=== PATIENT | female | born 1945 | race Caucasian/White ===

== ENCOUNTER → 2016-03-27 | Outpatient (CLI) | payer OTHER, MEDICARE ==
[~2016-03-27] MED LIST: BUPIVACAINE 0.25% 30 ML SDV ONE; DEPO METHYLPREDNISOLONE 40 MG/ML SDV ONE; LIDOCAINE 1% 30 ML SDV ONE; NA BICARBONATE 50 MEQ/50 ML VIAL ONE
--- NOTE | 2016-03-27 10:16 | CT ---
CT-Guided Injection of the Right Hip History: Patient has undergone prior right hip arthroplasty. Prior diagnostic CT examination January 29, 2016, demonstrates a fixation screw of the acetabular component which transgresses the cortex of the posterior right ilium. Diagnostic and potentially therapeutic injection is requested by Dr. Layo mejia to determine whether this represents a source of clinical symptomatology. Technique: Informed consent was obtained after explaining the risks of the procedure including bleedi ng and infection. A timeout was performed. The patient was placed in the left lateral decubitus position on the CT table. A localizing series wa s obtained. Subsequently, using standard sterile technique, lidocaine local anesthesia, and CT guidan ce, I advanced a 22-gauge spinal needle such that the tip of the needle was placed directly posterior and adjacent to the acetabular screw as it passes through the cortex of the ilium. At this location, 4 mL of 0.25% Marcaine and 40 mg Depo-Medrol were injected without complication. The needle was raz louie and hemostasis was achieved with manual compression. Impression: Successful CT-guided injection of the soft tissues adjacent to a right iliac fixation sc rew. Patient was given aftercare instructions, and asked to report back to Dr. Cabrera whether this injecti on provided symptomatic benefit.
== END ==
LOC: FIMAGING 07:48
PROVIDERS: ATTEND Orthopaedic Surgery
PROC: 3E0U33Z Introduction of Anti-inflammatory into Joints, Percutaneous Approach (ICD-10-PCS; principal; 2016-03-27)
DX: M25.551 Pain in right hip (principal); Z98.890 Other specified postprocedural states
CPT/HCPCS: 20610; 77012; J1020

== ENCOUNTER 2016-07-31 18:10 | Emergency (ER) | payer OTHER, MEDICARE ==
--- NOTE | 2016-07-31 18:19 | EDPHY ---
HPI/HX/ROS/PE/MDM Narrative: CHIEF COMPLAINT: Chest pain HPI: This patient is a 70 year old female who presents to the Emergency Department complaining of episodic chest pain beginning acutely yesterday afternoon. She describes her pain as a persistent dull ache localized to her left anterior chest and radiating to her shoulder. Today's episode first presented at 1500 today and has remained constant over time. She has not identified any alleviating or exacerbating factors for her pain; it is not worsened with exertion. She denies any additional complaints; no diaphoresis, nausea or vomiting, fever or chills, or lightheadedness. She does note bilateral pedal edema at night only over the past two weeks. She has a history of hypertension and hyperlipidemia. She had a stress test 5-6 years ago which was normal. REVIEW OF SYSTEMS: Aside from elements discussed in the HPI, a comprehensive 10-point review of systems was reviewed and is negative. PMH: Hyperlipidemia, hypertension, depression, hip replacement. SOCIAL HISTORY: at bedside. Retired. PHYSICAL EXAM: General:Patient is alert, appears anxious, is in no acute distress. ENT:Eyes are normal to inspection. ENT inspection normal. Neck: Normal inspection. Full range of motion. Respiratory:No respiratory distress. Breath sounds normal bilaterally. Cardiovascular: Regular rate and rhythm. Strong peripheral pulses. Normal cap refill. Abdomen:The abdomen is nontender to palpation. There are no peritoneal signs. There are normal bowel sounds. Back: Normal to inspection. No tenderness to palpation. Skin: Normal color. No rash. Warm and dry. Extremities: Normal appearance. Full range of motion. Neuro: Oriented x3. Normal motor function. Normal sensory function. ED Course: 70-year-old female with history of hyperlipidemia and hypertension presents with complaint of episodic chest pain localized to her left anterior chest with radiation to her shoulder. Her pain is not exertional or pleuritic in nature. No associated diaphoresis, nausea or vomiting, lightheadedness or weakness. She is alert and anxious appearing on exam. She is hypertensive at 177/104 at time of arrival. No abnormal exam findings. Plan for EKG, chest x-ray, and labs. IV established. 0.5mg IV lorazepam administered for anxiety. EKG was ordered and interpreted by myself and is non-ischemic. Please see [facility] for official reading. Labs reviewed and are largely within normal limits. Troponin is negative. Chest x-ray reviewed and is negative. I discussed lab, EKG, and imaging results with the patient. She is relieved. I offered her admission for further cardiac monitoring, which she declines. I discussed with her my recommendation that she follow-up as soon as possible with cardiology for further evaluation; she expresses agreement to this. She will be discharged home in good condition with strict return precautions. She understands I am unable to fully rule out a cardiac etiology of her chest pain here in the ED without further testing/admission. - Data Points Imaging Results: Imaging Impressions Chest X-Ray 07/31/16 18:31 Impression: Suspect airways disease with no superimposed acute abnormality identified. Imaging: I viewed and interpreted images myself (negative) Laboratory Results: Laboratory Results 07/31/16 18:19 07/31/16 18:19 07/31/16 07/31/16 18:19 18:19 WBC 6.78 10^3/uL 10^3/uL (3.80-9.50) RBC 4.27 10^6/uL 10^6/uL (4.18-5.33) Hgb 13.8 g/dL g/dL (12.6-16.3) Hct 40.4 % % (38.0-47.0) MCV 94.6 fL fL (81.5-99.8) MCH 32.3 pg pg (27.9-34.1) MCHC 34.2 g/dL g/dL (32.4-36.7) RDW 13.1 % % (11.5-15.2) Plt Count 307 10^3/uL 10^3/uL (150-400) MPV 9.9 fL fL (8.7-11.7) Neut % (Auto) 61.7 % % (39.3-74.2) Lymph % (Auto) 22.7 % % (15.0-45.0) [place] % (Auto) 13.1 % H % (4.5-13.0) Eos % (Auto) 1.5 % % (0.6-7.6) Baso % (Auto) 0.7 % % (0.3-1.7) Nucleat RBC Rel Count 0.0 % % (0.0-0.2) Absolute Neuts (auto) 4.18 10^3/uL 10^3/uL (1.70-6.50) Absolute Lymphs (auto) 1.54 10^3/uL 10^3/uL (1.00-3.00) Absolute Monos (auto) 0.89 10^3/uL H 10^3/uL (0.30-0.80) Absolute Eos (auto) 0.10 10^3/uL 10^3/uL (0.03-0.40) Absolute Basos (auto) 0.05 10^3/uL 10^3/uL (0.02-0.10) Absolute Nucleated RBC 0.00 10^3/uL 10^3/uL (0-0.01) Immature Gran % 0.3 % % (0.0-1.1) Immature Gran # 0.02 10^3/uL 10^3/uL (0.00-0.10) Sodium 139 mEq/L mEq/L (134-144) Potassium 4.0 mEq/L mEq/L (3.5-5.2) Chloride 107 mEq/L mEq/L (97-110) Carbon Dioxide 20 mEq/l L mEq/l (22-31) Anion Gap 12 mEq/L mEq/L (8-16) BUN 17 mg/dL mg/dL (7-23) Creatinine 0.8 mg/dL mg/dL (0.6-1.0) Estimated GFR > 60 Glucose 95 mg/dL mg/dL (70-100) Calcium 9.8 mg/dL mg/dL (8.5-10.4) Troponin I < 0.012 ng/mL ng/mL (0-0.034) Medications Given: Discontinued Medications Famotidine (Pepcid) 20 mg PO EDNOW ONE Stop: 07/31/16 19:31 Last Admin: 07/31/16 19:53 Dose: 20 mg Lorazepam (Ativan Injection) 0.5 mg IVP EDNOW ONE Stop: 07/31/16 19:10 Last Admin: 07/31/16 18:50 Dose: 0.5 mg General Time Seen by Provider: 07/31/16 18:16 Initial Vital Signs: Initial Vital Signs Temperature (C) 37 C 07/31/16 18:12 Heart Rate 83 07/31/16 18:12 Respiratory Rate 18 07/31/16 18:12 Blood Pressure 177/104 H 07/31/16 18:12 O2 Sat (%) 96 07/31/16 18:12 O2 Delivery Mode Room Air O2 (L/minute) 2 Allergies/Adverse Reactions: Penicillins Allergy (Unknown, Verified 07/31/16 18:12) as child Home Medications: Medication Instructions Recorded Atorvastatin Calcium [Lipitor 40 40 mg PO 07/31/16 mg (*)] FLUoxetine [PROzac] 10 mg PO 07/31/16 Departure - Departure Disposition: Home, Routine, Self-Care Clinical Impression: Chest pain Qualifiers: Chest pain type: unspecified Qualified Code(s): R07.9 - Chest pain, unspecified Condition: Good Instructions: Chest Pain (ED) Additional Instructions: Follow up with a power station operator for further testing, as soon as possible, within one week. As we discussed, it is impossible to fully rule out heart disease as the cause of your chest pain in the emergency department. We would be happy to reevaluate you and observe you in the hospital at any time. Return to the Emergency Department immediately if you experience any worsening of your condition, including: shortness of breath, increased chest pain, nausea or vomiting, lightheadedness, or additional serious concerns. Referrals: Kim Francis MD [Primary Care Provider] - As per Instructions Chase Noel MD [Medical Doctor] - As per Instructions Report Scribed for: Marco Maria Report Scribed by: Jennifer Chatterjee Date of Report: 07/31/16 Time of Report: 18:18 Physician Review and Approval Statement: Portions of this note were transcribed by an ED scribe. I personally performed the history, physical exam, and medical decision making; and confirm the accuracy of the information in the transcribed note.
--- NOTE | 2016-07-31 18:21 | CPEKG ---
Heart Rate: 85 RR Interval: 706 P-R Interval: 180 QRSD Interval: 100 QT Interval: 380 QTC Interval: 452 P [place]: 64 QRS [place]: -41 T Wave [place]: 75 EKG Severity - ABNORMAL ECG - EKG Impression: SINUS RHYTHM EKG Impression: LEFT ANTERIOR FASCICULAR BLOCK EKG Impression: ANTERIOR Q WAVES, POSSIBLY DUE TO LVH Electronically Signed By: Marco Maria 31-Jul-2016 23:05:47
[2016-07-31] MEDS ORDERED: LORazepam 2 MG/ML INJ ONE (18:25)
[2016-07-31 18:37] LABS: % IMMATURE GRANULYOCYTES 0.3 % (0.0-1.1); ABSOLUTE IMMATURE GRANULOCYTES 0.02 10^3/uL (0.00-0.10); ADD DIFF? NO; ADD MORPH? NO; ADD SCAN? NO; ATYPICAL LYMPHOCYTE FLAG 10 (0-99); FRAGMENT RBC FLAG 0 (0-99); HEMATOCRIT 40.4 % (38.0-47.0); HEMOGLOBIN 13.8 g/dL (12.6-16.3); LEFT SHIFT FLG 0 (0-99); LIPEMIA HEMOLYSIS FLAG 90 (0-99); MEAN CELL HEMOGLOBIN 32.3 pg (27.9-34.1); MEAN CELL HEMOGLOBIN CONCENTR. 34.2 g/dL (32.4-36.7); MEAN CELL VOLUME 94.6 fL (81.5-99.8); MEAN PLATELET VOLUME 9.9 fL (8.7-11.7); PLATELET CLUMPS FLAG 10 (0-99); PLATELET COUNT 307 10^3/uL (150-400); RED BLOOD CELL COUNT 4.27 10^6/uL (4.18-5.33); RED CELL DISTRIBUTION WIDTH 13.1 % (11.5-15.2)
[2016-07-31 18:42] LABS: ANION GAP 12 mEq/L (8-16); CALCIUM 9.8 mg/dL (8.5-10.4); CARBON DIOXIDE 20 mEq/l (22-31); CHLORIDE 107 mEq/L (97-110); CREATININE 0.8 mg/dL (0.6-1.0); GLOMERULAR FILTRATION RATE > 60; GLUCOSE 95 mg/dL (70-100); SODIUM 139 mEq/L (134-144)
[2016-07-31 18:54] LABS: TROPONIN I < 0.012 ng/mL (0-0.034)
[2016-07-31] MEDS ORDERED: LORazepam 2 MG/ML INJ IVP ONE (19:09)
[2016-07-31] MEDS ORDERED: FAMOTIDINE 20 MG TAB PO ONE (19:30)
[2016-07-31 20:00] VITALS: BP 140/70; PULSE 76; RESP 16; TEMP 98.2; O2SAT 95
== END 2016-07-31 20:00 | disposition home or self-care (01) ==
DX: R07.9 Chest pain, unspecified (principal); I10 Essential (primary) hypertension
CPT/HCPCS: 71020; 93005; 96374; 99285; J2060

== ENCOUNTER → 2016-08-12 | Outpatient (CLI) | payer OTHER, MEDICARE | LOC: BMCIMAGING 10:43 | PROVIDERS: ATTEND Internal Medicine | DX: J98.4 Other disorders of lung (principal); Z87.891 Personal history of nicotine dependence ==

== ENCOUNTER → 2017-05-11 | Outpatient (CLI) | payer OTHER, MEDICARE | LOC: FIMAGING 11:24 | PROVIDERS: ATTEND Family Medicine | DX: Z12.31 Encounter for screening mammogram for malignant neoplasm of breast (principal) ==

== ENCOUNTER → 2017-05-17 | Outpatient (CLI) | payer OTHER, MEDICARE | LOC: FIMAGING 10:14 | PROVIDERS: ATTEND Family Medicine | DX: R92.0 Mammographic microcalcification found on diagnostic imaging of breast (principal) ==

== ENCOUNTER → 2017-06-22 | Day surgery (SDC) | payer OTHER, MEDICARE ==
[~2017-06-22] MED LIST changes: -BUPIVACAINE 0.25% 30 ML SDV ONE; +BUPIVACAINE 0.5% 30 ML SDV ONE; -DEPO METHYLPREDNISOLONE 40 MG/ML SDV ONE; -LIDOCAINE 1% 30 ML SDV ONE; +LIDOCAINE 1% 300 MG/30 ML SDV ONE; -NA BICARBONATE 50 MEQ/50 ML VIAL ONE; +THROMBIN (BOVINE) 5,000 UNIT VIAL TP ONE
== END | disposition home or self-care (01) ==
LOC: FIMAGING 07:12
PROVIDERS: ATTEND Family Medicine
DX: D24.2 Benign neoplasm of left breast (principal); N60.12 Diffuse cystic mastopathy of left breast; R92.0 Mammographic microcalcification found on diagnostic imaging of breast; Z88.0 Allergy status to penicillin

== ENCOUNTER → 2017-07-25 | Outpatient (CLI) | payer OTHER, MEDICARE | LOC: FIMAGING 12:29 | PROVIDERS: ATTEND Physician Assistant Medical | DX: Z09 Encounter for follow-up examination after completed treatment for conditions other than malignant neoplasm (principal); M16.12 Unilateral primary osteoarthritis, left hip; Z96.641 Presence of right artificial hip joint ==

== ENCOUNTER → 2017-08-05 | Outpatient (CLI) | payer OTHER, MEDICARE | LOC: FIMAGING 07:34 | PROVIDERS: ATTEND Physician Assistant Medical | DX: Z47.1 Aftercare following joint replacement surgery (principal); Z96.641 Presence of right artificial hip joint; M25.551 Pain in right hip ==

== ENCOUNTER → 2018-02-28 | Outpatient (CLI) | payer OTHER, MEDICARE | LOC: FIMAGING 09:45 | PROVIDERS: ATTEND Family Medicine | DX: N60.31 Fibrosclerosis of right breast (principal); N60.32 Fibrosclerosis of left breast ==

== ENCOUNTER → 2018-05-22 | Outpatient (CLI) | payer OTHER, MEDICARE | LOC: BMCIMAGING 12:25 | PROVIDERS: ATTEND Family Medicine | DX: J40 Bronchitis, not specified as acute or chronic (principal) ==

== ENCOUNTER → 2018-07-25 | Outpatient (CLI) | payer OTHER, MEDICARE | LOC: FIMAGING 12:31 ==

== ENCOUNTER 2018-08-04 06:25 | Inpatient (IN) | payer OTHER, MEDICARE | END 2018-08-05 11:39 | disposition home health service (06) | LOC: F3N 06:25 ==